=== PATIENT | male | born 1985 | race Caucasian/White ===

== ENCOUNTER → 2018-01-07 | Outpatient (CLI) | payer BC ==
--- NOTE | 2018-01-07 10:53 | Diagnostic Imaging Report ---
INDICATION: Acute low back pain AP and lateral views of the lumbar spine show normal vertebral body height and alignment. No compression fractures. Disc spaces are well maintained. IMPRESSION: Negative radiographs of the lumbar spine. Dictated by: Dictated on workstation # [id number]
== END ==
LOC: RAD 10:31
PROVIDERS: ATTEND Chiropractor
DX: M54.5 Low back pain (principal)
CPT/HCPCS: 72100